=== PATIENT | female | born 1955 | race Caucasian/White ===

== ENCOUNTER 2020-10-31 11:18 | Outpatient (REF) | payer BC, SELFPAY ==
--- NOTE | ~2020-10-31 | CT_ITS ---
EXAMINATION: CT CHEST WITHOUT CONTRAST CLINICAL INFORMATION: Pulmonary nodules. COMPARISON: CT chest dated 09/03/2019. TECHNIQUE: Multidetector volumetric CT imaging of the chest was done. Axial MIP volume rendering provided. Sagittal and coronal reformatted images were obtained. This CT examination was performed using dose optimization techniques as appropriate, variously including the following: *Automated exposure control *Adjustment of mA and/or kV according to patient size (this includes techniques or standardized protocols for targeted exams where dose is matched to indication/reason for exam; i.e. extremities or head) *Use of iterative reconstruction technique DLP: 109 mGy-cm. FINDINGS: COUNSELING PROGRAM LEADER: Unremarkable. LUNGS: Biapical nodular pleural thickening is redemonstrated. Subpleural nodularity is again noted to extend posteriorly along the right lung, similar when compared to the prior examination. Stable lateral subpleural nodule measuring 0.3 cm (axial image 134/436). Stable small subpleural nodules along the left major fissure and within the subpleural left upper lobe. No new pulmonary nodule, mass, or airspace consolidation. The central airways are patent. MEDIASTINUM: No cardiomegaly. No pericardial effusion. No thoracic aortic dilatation. No significant superior mediastinal or hilar lymphadenopathy, however, evaluation somewhat limited without IV contrast. Unremarkable thyroid. PLEURA: No pleural effusion or pneumothorax. AXILLA: No lymphadenopathy. UPPER ABDOMEN: Left upper pole renal cyst with associated calcifications, unchanged. Nonobstructing left midpole renal stone, unchanged. Otherwise, the visualized upper abdominal structures are unremarkable. OSSEOUS STRUCTURES: Unremarkable. CT/CT chest wo con IMPRESSION: 1. Biapical nodular pleural thickening extending inferiorly along the posterior right lower lobe, unchanged. Small pulmonary nodules, unchanged. No continued routine follow-up imaging recommended. 2. No new pulmonary nodule, mass, or airspace consolidation. No pleural effusion or pneumothorax. 3. No new or increasing lymphadenopathy. 4. Stable left upper pole renal cyst with associated calcification.
== END 2020-10-31 11:19 | disposition home or self-care (01) ==
LOC: HO.CT 11:18
PROVIDERS: PCP Internal Medicine Geriatric Medicine; Visit Provider Hospitalist
DX: R91.8 Other nonspecific abnormal finding of lung field (principal); I83.12 Varicose veins of left lower extremity with inflammation
CPT/HCPCS: 71250

== ENCOUNTER 2020-11-02 10:17 | Outpatient (REF) | payer MEDICARE, SELFPAY ==
--- NOTE | ~2020-11-02 | US_ITS ---
EXAMINATION: RIGHT and LEFT LOWER EXTREMITY VENOUS ULTRASOUND (Reflux Exam) CLINICAL INDICATION: leg pain and varicose veins. COMPARISON: None. TECHNIQUE: Color flow triplex imaging and compression Doppler was performed to evaluate both the deep and the superficial systems bilaterally. To evaluate the superficial system, the examination was performed in the upright position. Color-flow Doppler ultrasound and compression ultrasound were utilized. In addition, maneuvers were utilized to demonstrate reflux. FINDINGS: 1. DEEP VENOUS ULTRASOUND OF THE RIGHT LOWER EXTREMITY: Respiratory variation, normal compression and augmented flow are noted in the right common femoral vein as well as the right popliteal vein and there is no evidence of deep venous thrombosis at these locations. There is no evidence of reflux in the deep system in either the common femoral vein or the popliteal vein. There is no evidence of a Marie's cyst. 2. SUPERFICIAL ULTRASOUND WITH DOPPLER OF RIGHT LOWER EXTREMITY: The right great saphenous vein at the saphenofemoral junction measures 4 mm, at the mid thigh 3 mm, hyilk-mnv-hrfx 2 mm, zohaa-icv-nkhq 1 mm, at mid calf 1 mm and at the ankle measures 2 mm. There is no reflux demonstrated in the right great saphenous vein. The right small saphenous vein measures 2-4 mm and shows no reflux. There are 2 small perforators in the mid calf that measure 1 and 2 mm and do not demonstrate reflux. 3. DEEP VENOUS ULTRASOUND OF THE LEFT LOWER EXTREMITY: Respiratory variation, normal compression and augmented flow are noted in the left common femoral vein as well as the left popliteal vein and there is no evidence of deep venous thrombosis at these locations. There is no evidence of reflux in the deep system in either the common femoral vein or the popliteal vein. . There is no evidence of a Marie's cyst. 4. SUPERFICIAL ULTRASOUND WITH DOPPLER OF LEFT LOWER EXTREMITY: Left great saphenous vein at the saphenofemoral junction measures 6 mm, at the mid thigh to mm, rqupb-enp-idwy 2 mm, omijf-iai-ttbp 1 mm, at mid calf 2 mm and at the ankle measures 2 mm. There is left greater saphenous vein reflux below the knee measuring 3.2 seconds. There is an accessory lateral greater saphenous vein that measures 2 to 3 mm and does not demonstrate reflux. The left small saphenous vein measures 3 mm and demonstrates maximum 3.5 second reflux. There are varicosities that communicate with the lesser saphenous vein that measure 4 mm and demonstrate maximum 3.5 second reflux. US/US venous duplex LE BI IMPRESSION: 1. No evidence of reflux or thrombus in the common femoral veins or popliteal veins bilaterally. 2. No right greater saphenous vein reflux. Left greater saphenous vein reflux below the knee. Left lesser saphenous vein reflux and varicosities that communicate with the left lesser saphenous vein that demonstrate reflux.
== END 2020-11-02 10:18 | disposition home or self-care (01) ==
LOC: HO.US 10:17
PROVIDERS: Visit Provider Surgery Vascular Surgery
DX: I83.893 Varicose veins of bilateral lower extremities with other complications (principal); I83.12 Varicose veins of left lower extremity with inflammation
CPT/HCPCS: 93970

== ENCOUNTER → 2020-11-16 15:10 | Outpatient (BNVA) | payer MEDICARE, SELFPAY | PROVIDERS: PCP Internal Medicine Geriatric Medicine; Visit Provider Surgery Vascular Surgery | DX: I83.12 Varicose veins of left lower extremity with inflammation (principal) | CPT/HCPCS: 99212 ==

== ENCOUNTER 2023-02-20 09:44 | Outpatient (AMB) | payer MEDICARE, SELFPAY ==
--- NOTE | 2023-02-20 10:09 | A.OFFVIS_ITS ---
Intake VS Expanded 02/20/23 10:10 Height 5 ft 1 in Weight 125 lb 7.088 oz BMI 23.7 Intake Visit Reasons: diverticulitys Allergies cephalexin Allergy (Unknown, Verified 11/16/20 15:12) Swelling IVP Dye Allergy (Severe, Uncoded 10/31/20 12:18) Anaphylaxis HPI Nutrition Presentation Details Pt presents for MNT for diverticulosis. Pt was referred by Dr. Kirk. Name Pt reports having had diverticulitis 3 month ago and has started s making diet modifications regarding seeds/skins/popcorn Reports having long hx of constipation B: 1/2 bagel white , sharp cheese and slice of turkey ham and coffee th started having almond milk and team snack: carolin iwth sugar and 1 banana L: fruit cups D: rice/chicken or pasta with chicken or fish beverages: 16 oz of d (water or tea) physical activity: daily life activities ETOH/smoking denies ZQU-Mkcvary-Cr.Jeor Equation Height 5 ft 1 in Weight 125 lb Resting Metabolic Rate 1034.32 Calculated Activity Level Mild Activity Calories Needed to Maintain Weight 1422.19 Diagnosis Nutrition problem #1 food nutri know defi As related to (etiology) #1 diagnosis As evidenced by (sign/symptom) #1 knowledge deficit of diet Monitoring/Goals Nutrition problem monitoring level of knowledge/skill and oral fluids ( gradually increasing fiber rich foods) Learning/Education Readiness to learn good Educational materials provided Yes (meal planning, fluids, fiber rich foods) Most Recent Diabetes Results: No Data to Display [facility] Medical History History of DVT (deep vein thrombosis) Osteoporosis Renal cyst Situational anxiety Venous (peripheral) insufficiency Assessment & Plan Assessment & Plan (1) Diverticulitis: Code(s): K57.92 - Diverticulitis of intestine, part unspecified, without perforation or abscess without bleeding Plan: wt: 57 kg Est kcal needs as per25 kcal/kg bw: 1400 (40% carb, 30% protein/fat) Est fluid needs as per 25-30 ml/d: 1400 Est prot per day as per 1 g/kg bw: 57 Recommend fiber intake : 8-10 g per day and gradually increase to 25-28 g per day for women and 35-38 g for men or as tolerated Recommend sodium intake per day : less than 2000 mg Educated patient on: ( R = reviewed V = verbalizes understanding N/R = needs review N/A = not applicable * Food sources of carbohydrate, adequate serving sizes and its role in various health conditions: R * Differences between complex carbohydrates a simple carbohydrates, role of fiber in diet: R * Differences between types of fats and role in diet (mono on saturated fat fatty acids, saturated fatty acids, trans fats): NR * Food sources of sodium in salt and healthy modifications for heart health in kidney health: NR * Vitamins and minerals: R * Healthy plate method concept: R * Physical activity: Benefits a precaution: R * Hydration: R Patient Instructions: Increase fluid intake aim at 6-8 oz of fluids with meals and snacks Gradually increase fiber to 6-12 g as tolerated for now see meal plan ideas Coding Level of Care Code Nutr Indiv Intake (60494) Diagnoses Diverticulitis K57.92 Time Spent (min) 30
[2023-02-20 10:10] VITALS: BMI 23.7
[2023-02-26 15:03] VITALS: BMI 23.6
== END 2023-02-20 10:52 | disposition home or self-care (01) ==
PROVIDERS: PCP Internal Medicine Geriatric Medicine; Visit Provider Dietitian, Registered
DX: K57.92 Diverticulitis of intestine, part unspecified, without perforation or abscess without bleeding (principal)

== ENCOUNTER → 2023-02-20 09:44 | Outpatient (BNVA) | payer MEDICARE, SELFPAY | PROVIDERS: PCP Internal Medicine Geriatric Medicine; Visit Provider Dietitian, Registered | DX: K57.92 Diverticulitis of intestine, part unspecified, without perforation or abscess without bleeding (principal); Z71.3 Dietary counseling and surveillance | CPT/HCPCS: 97802 ==

== ENCOUNTER 2023-06-16 14:15 | Outpatient (AMB) | payer MEDICARE, SELFPAY ==
[2023-06-16 14:17] VITALS: BMI 24.2
--- NOTE | 2023-06-16 14:17 | A.OFFVIS_ITS ---
Intake VS Expanded 06/16/23 14:17 Height 5 ft 1 in Weight 128 lb 4.944 oz BMI 24.2 Intake Visit Reasons: diverticulitis Allergies cephalexin Allergy (Unknown, Verified 11/16/20 15:12) Swelling IVP Dye Allergy (Severe, Uncoded 10/31/20 12:18) Anaphylaxis HPI Nutrition Presentation Details Pt presents for MNT for hx of diverticulosis Pt reports increasing in fiber intake, including 3-4 g of fiber at each meal and working on increasing fluids, concerned about cold weather and possible reduction in fluid intake. Most Recent Diabetes Results: No Data to Display [facility] Medical History History of DVT (deep vein thrombosis) Osteoporosis Renal cyst Situational anxiety Venous (peripheral) insufficiency Assessment & Plan Assessment & Plan (1) Diverticulitis: Code(s): K57.92 - Diverticulitis of intestine, part unspecified, without perforation or abscess without bleeding Plan: wt: 57 kg Est kcal needs as per25 kcal/kg bw: 1400 (40% carb, 30% protein/fat) Est fluid needs as per 25-30 ml/d: 1400 Est prot per day as per 1 g/kg bw: 57 Recommend fiber intake : 8-10 g per day and gradually increase to 25-28 g per day for women and 35-38 g for men or as tolerated Recommend sodium intake per day : less than 2000 mg Educated patient on: ( R = reviewed V = verbalizes understanding N/R = needs review N/A = not applicable * Food sources of carbohydrate, adequate serving sizes and its role in various health conditions: R * Differences between complex carbohydrates a simple carbohydrates, role of fiber in diet: R, V * Vitamins and minerals: R * Healthy plate method concept: R * Physical activity: Benefits a precaution: R * Hydration: R,V Patient Instructions: Increase fluids by having tea, water , diluted fruit juices water , soups , low fat milk . Aim at 6-7 cups/day, may need to increase as fiber consumption increases to prevent constipation Choose fruit juices with natural sorbitol (pear/prune/apple) and fruits (berries/grapes, pears, apples, vegetables like cabbages, broccoli) Coding Level of Care Code Nutr Indiv Subseq (14136) Diagnoses Diverticulitis K57.92 Time Spent (min) 30
== END 2023-06-16 14:44 | disposition home or self-care (01) ==
PROVIDERS: PCP Internal Medicine Geriatric Medicine; Visit Provider Dietitian, Registered
DX: K57.92 Diverticulitis of intestine, part unspecified, without perforation or abscess without bleeding (principal)

== ENCOUNTER → 2023-06-16 14:15 | Outpatient (BNVA) | payer MEDICARE, SELFPAY | PROVIDERS: PCP Internal Medicine Geriatric Medicine; Visit Provider Dietitian, Registered | DX: K57.92 Diverticulitis of intestine, part unspecified, without perforation or abscess without bleeding (principal) | CPT/HCPCS: 97803 ==

== ENCOUNTER 2023-09-15 14:04 | Outpatient (AMB) | payer MEDICARE, SELFPAY ==
[2023-09-15 14:23] VITALS: BMI 25.0
--- NOTE | 2023-09-15 14:23 | A.OFFVIS_ITS ---
Intake VS Expanded 09/15/23 14:23 Height 5 ft 1 in Weight 132 lb 7.965 oz BMI 25.0 Intake Visit Reasons: diverticulitis/CONFIRMED Allergies cephalexin Allergy (Unknown, Verified 11/16/20 15:12) Swelling IVP Dye Allergy (Severe, Uncoded 10/31/20 12:18) Anaphylaxis HPI Nutrition Presentation Details Patient presents for medical nutrition therapy for history of diverticulitis. Patient reports she has cracker gradually working on increasing fluids and also fiber rich foods. Patient reports feeling comfortable and having no dietary questions or concerns at this time. She reports feeling a little anxious to to retiring soon and needs to find and ways to keep active physical activity walking 15 minutes Most Recent Diabetes Results: No Data to Display COUNT INCLUDES [facility] Medical History History of DVT (deep vein thrombosis) Osteoporosis Renal cyst Situational anxiety Venous (peripheral) insufficiency Assessment & Plan Assessment & Plan (1) Diverticulitis: Code(s): K57.92 - Diverticulitis of intestine, part unspecified, without perforation or abscess without bleeding Plan: wt: 57 kg, 60 kg (09/2023) Est kcal needs as per25 kcal/kg bw: 1400 (40% carb, 30% protein/fat) Est fluid needs as per 25-30 ml/d: 1400 Est prot per day as per 1 g/kg bw: 57 Recommend fiber intake : 8-10 g per day and gradually increase to 25-28 g per day for women and 35-38 g for men or as tolerated Recommend sodium intake per day : less than 2000 mg Educated patient on: ( R = reviewed V = verbalizes understanding N/R = needs review N/A = not applicable * Food sources of carbohydrate, adequate serving sizes and its role in various health conditions: R * Differences between complex carbohydrates a simple carbohydrates, role of fiber in diet: R, V * Vitamins and minerals: R * Healthy plate method concept: R * Physical activity: Benefits a precaution: R * Hydration: R,V Patient Instructions: Include foods with probiotics and prebiotics Continue working on having variety of foods, choose cooked or canned vegetables low in salt Keep hydrated by having water with meals Joined the [facility] food for activities Call for any questions Coding Level of Care Code Nutr Indiv Subseq ([id number]) Diagnoses Diverticulitis K57.92 Time Spent (min) 30
== END 2023-09-15 14:54 | disposition home or self-care (01) ==
PROVIDERS: PCP Internal Medicine Geriatric Medicine; Visit Provider Dietitian, Registered
DX: K57.92 Diverticulitis of intestine, part unspecified, without perforation or abscess without bleeding (principal)

== ENCOUNTER → 2023-09-15 14:04 | Outpatient (BNVA) | payer MEDICARE, SELFPAY | PROVIDERS: PCP Internal Medicine Geriatric Medicine; Visit Provider Dietitian, Registered | DX: K57.92 Diverticulitis of intestine, part unspecified, without perforation or abscess without bleeding (principal) | CPT/HCPCS: 97803 ==

== ENCOUNTER 2023-10-08 13:32 | Outpatient (AMB) | payer MEDICARE, SELFPAY ==
--- NOTE | 2023-10-08 13:35 | A.OFFVIS_ITS ---
Intake Vital Signs 10/08/23 13:37 Height 5 ft 1 in Weight 128 lb 11.999 oz BMI 24.3 BP 144/73 H Blood Pressure Location Lt brachial Position Sitting Pulse 77 Pulse Source Pulse Oximeter Pulse Oximetry (%) 99 Oxygen Delivery Method Room Air Intake Visit Reasons: colonoscopy and diverticulitis Supervisor Type Disk Quality Control Required: No Information Interpreted: non-clinical & clinical Accompanied by: Self / Same As Patient Allergies cephalexin Allergy (Unknown, Verified 10/08/23 13:38) Swelling IVP Dye Allergy (Severe, Uncoded 10/08/23 13:38) Anaphylaxis HPI colonoscopy and diverticulitis HPI Details 68 year old? female with past medical hi story of osteoporosis, hyperlipidemia, hypertension is here today for pre colonoscopy screening.? Patient was sent to us by his PCP.? Last colonoscopy about 8 or 9 years ago. No polyps found. Patient was diagnosed with diverticulosis. Last year patient had an episode of diverticulitis seen in the ER at [facility] and sent home with antibiotics. Since then patient had no further episodes.? However patient does admit to be straining and trouble moving her bowels.? Denies any personal or family history of gastrointestinal disease, colon polyps, or cancer.? Denies history of difficulty with sedation or anesthesia in the past.? Negative for history of sleep apnea.? Denies any history of cardiac, renal, pulmonary, or hepatic disease.?? No history of infectious? diseases like hepatitis A, B, C, HIV or tuberculosis.? Patient is not on any anticoagulation therapy. [facility] Medical History (Updated 10/08/23 @ 14:23 by Kaylynn Ng [facility]) Diverticulosis History of DVT (deep vein thrombosis) Renal cyst Osteoporosis Situational anxiety Venous (peripheral) insufficiency Family History (Updated 10/08/23 @ 13:41 by Lisa Morfin MA) Mother Cancer of liver Cancer of stomach Social History (Updated 10/08/23 @ 13:45 by Lisa Morfin MA) Household Members: Spouse Alcohol intake: never Patient Tobacco Use Status: Never used Tobacco Review of Systems Const Denies weight gain and Denies weight loss ENT Reports no additional complaints, Denies dysphagia and Denies odynophagia Card Reports no additional complaints Resp Reports no additional complaints GI Denies abdominal pain, Denies belching, Denies melena, Denies bloating, Denies change in bowel habits, Reports constipation, Denies dysphagia, Denies dyspepsia, Denies heartburn, Denies diarrhea, Denies loose stools, Denies nausea, Denies odynophagia and Denies vomiting Reports no additional complaints Musc Reports no additional complaints Neuro Reports no additional complaints Psych Reports no additional complaints Endo Reports no additional complaints Physical Exam Vital Signs: BMI result Body Mass Index 24.3 Const General: healthy appearing, no acute distress and well developed Nutritional Appearance: well nourished Orientation/consciousness: patient oriented x3 Resp Effort & Inspection: normal respiratory effort, able to speak in complete sentences, no tracheal deviation and symmetric chest movement Auscultation: clear to auscultation bilaterally Cardio Rate: regular rate GI Inspection: Yes normal to inspection and No distended Palpation (GI): Soft to palpation, not firm, nontender and No hepatosplenomegaly present Auscultation: normal bowel sounds General: Yes no CVA tenderness Back/Spine/Pelvis Back: no CVA tenderness Skin General skin exam: elasticity normal, turgor normal and dry skin Neuro General: patient oriented x3 Psych Appearance: grossly normal Mental Status: mental status grossly normal Assessment & Plan Assessment & Plan (1) Diverticulitis: Code(s): K57.92 - Diverticulitis of intestine, part unspecified, without perforation or abscess without bleeding (2) Screen for colon cancer: Code(s): Z12.11 - Encounter for screening for malignant neoplasm of colon (3) Diverticulosis: Code(s): K57.90 - Diverticulosis of intestine, part unspecified, without perforation or abscess without bleeding (4) Constipation: Code(s): K59.00 - Constipation, unspecified Qualifiers: Constipation type: slow transit constipation Qualified Code(s): K59.01 - Slow transit constipation Plan Patient denies any cardiac or respiratory symptoms.? Denies any issues with anesthesia in the past.? Denies any history of sleep apnea.? No history infectious diseases in the past or present.? Not on any anticoagulation therapy.? No family or personal history of colon cancer or polyps.? Patient denies melena, hematochezia, unintentional weight loss or ribbon like stools.? Patient reports constipation, history of diverticulitis and diagnosed with diverticulosis 8 years ago on colonoscopy. Patient is not moving her bowels, states that she is constipated. Most likely due to diverticulosis. Last year when seen in the ER at [facility] CT scan showed moderate diverticulosis of left side of her colon. Large area in sigmoid colon with inflammation and patient was placed on antibiotics. Patient will start taking MiraLax daily and Colace. The importance of good bowel prep discussed with patient. Discussed at length the pre-procedure,? prep, diet & medications as well as what to expect prior, during and after the procedure.?? Stressed the importance of good bowel prep. ?Recommended the use of Vaseline or Calmoseptine OTC & baby wipes with bowel movements to promote comfort.? ?Patient verbalizes understanding and agrees to plan of care.? She was given the opportunity to ask questions and all questions answered.? We will see her after the procedure.? Medications: New bisacodyl (Dulcolax (bisacodyl)) 10 mg (2 x 5 mg) PO BEDTIME 180 tabs 4RF polyethylene glycol 3350 (Miralax) As directed by gastroenterology department at [facility] 238 grams PO ONCE 238 grams 0RF Z12.11 - Encounter for screening for malignant neoplasm of colon docusate sodium 100 mg PO DAILY 30 caps 5RF K59.00 - Constipation, unspecified polyethylene glycol 3350 (Miralax) 17 grams PO DAILY 510 grams 2RF Coding Level of Care Code New Pt Level 4 (05055) Diagnoses Diverticulitis K57.92 Screen for colon cancer Z12.11 Diverticulosis K57.90 Slow transit constipation K59.01 Constipation type: slow transit constipation Time Spent (min) 45 Comment 30 minutes spent with patient and additional 15 minutes spent reviewing her records
[2023-10-08 13:37] VITALS: BP 144/73; PULSE 77; O2SAT 99; BMI 24.3
== END 2023-10-08 14:18 | disposition home or self-care (01) ==
PROVIDERS: PCP Internal Medicine Geriatric Medicine; Visit Provider Nurse Practitioner Family
DX: K57.92 Diverticulitis of intestine, part unspecified, without perforation or abscess without bleeding (principal); Z12.11 Encounter for screening for malignant neoplasm of colon; K57.90 Diverticulosis of intestine, part unspecified, without perforation or abscess without bleeding; K59.01 Slow transit constipation
CPT/HCPCS: 99204

== ENCOUNTER → 2023-10-08 13:32 | Outpatient (BNVA) | payer MEDICARE, SELFPAY | PROVIDERS: PCP Internal Medicine Geriatric Medicine; Visit Provider Nurse Practitioner Family | DX: Z01.818 Encounter for other preprocedural examination (principal); K57.90 Diverticulosis of intestine, part unspecified, without perforation or abscess without bleeding; K59.01 Slow transit constipation | CPT/HCPCS: 99202 ==

== ENCOUNTER 2024-02-24 06:23 | Day surgery (SDC) | payer MEDICARE, SELFPAY ==
[2024-02-20 14:08] VITALS: BMI 24.2
--- NOTE | 2024-02-23 12:42 | HO.ANESPROP2 ---
Documented by User: Lenore Leigh NP 02/23/24 12:43 HPI - Anesthesia Eval Consult details Narrative: 68yo F for Colonoscopy PMFSH Active Problems Active Problems: All Active Problems Diverticulosis (Acute) Diverticulitis (Acute) Varicose veins of left lower extremity with inflammation (Acute) Past Medical History Medical History (Updated 02/24/24 @ 08:10 by Jenn Mcgee RN) Elevated cholesterol HTN (hypertension) Diverticulosis History of DVT (deep vein thrombosis) Renal cyst Osteoporosis Situational anxiety Venous (peripheral) insufficiency Family History Family History (Updated 10/08/23 @ 13:41 by Lisa Morfin MA) Mother Cancer of liver Cancer of stomach Surgical History Surgical History (Updated 02/24/24 @ 07:49 by Jenn Mcgee RN) Hx of tonsillectomy Social History Social History Household Members: Spouse Alcohol intake: never Patient Tobacco Use Status: Never used Tobacco Use of substances other than those prescribed or required for medical reasons: No Are you DNR?: No Advance Directives: No Advance Directives Information Provided: Yes Meds Allergies Allergy/AdvReac Type Severity Reaction Status Date / Time cephalexin Allergy Unknown Swelling Verified 10/08/23 13:38 IVP Dye Allergy Severe Anaphylaxis Uncoded 10/08/23 13:38 Home Medications ?Medication ?Instructions ?Recorded ?Confirmed ?Last Taken ?Type atorvastatin 10 mg tablet (Lipitor) 10 mg PO DAILY 10/08/23 Unknown History propranolol 20 mg tablet 20 mg PO BID 10/08/23 Unknown History Kiana 10 mg PO DAILY 02/24/24 02/24/24 Unknown History Calcium 600 + D(3) 600 mg 02/24/24 Unknown History biotin 5,000 mcg 02/24/24 Unknown History Exam Height,Weight and Vital Signs: Height 5 ft 1 in Weight 58.06 kg Assessment and Plan Assessment Anesthesia Assessment: Chart Reviewed Documented by User: Collins Robertson MD 02/24/24 10:31 [facility] Past Medical History Medical History (Updated 02/24/24 @ 08:10 by Jenn Mcgee, RN) Elevated cholesterol HTN (hypertension) Diverticulosis History of DVT (deep vein thrombosis) Renal cyst Osteoporosis Situational anxiety Venous (peripheral) insufficiency Family History Family History (Updated 10/08/23 @ 13:41 by Lisa Morfin MA) Mother Cancer of liver Cancer of stomach Family history of problems with anesthesia: No Surgical History Surgical History (Updated 02/24/24 @ 07:49 by Jenn Mcgee, RN) Hx of tonsillectomy History of Problems with Anesthesia: No Social History Social History Household Members: Spouse Alcohol intake: never Patient Tobacco Use Status: Never used Tobacco Use of substances other than those prescribed or required for medical reasons: No Are you DNR?: No Advance Directives: No Advance Directives Information Provided: Yes Meds Allergies Allergy/AdvReac Type Severity Reaction Status Date / Time cephalexin Allergy Unknown Swelling Verified 10/08/23 13:38 IVP Dye Allergy Severe Anaphylaxis Uncoded 10/08/23 13:38 Home Medications ?Medication ?Instructions ?Recorded ?Confirmed ?Last Taken ?Type atorvastatin 10 mg tablet (Lipitor) 10 mg PO DAILY 10/08/23 Unknown History propranolol 20 mg tablet 20 mg PO BID 10/08/23 Unknown History Kiana 10 mg PO DAILY 02/24/24 02/24/24 Unknown History Calcium 600 + D(3) 600 mg 02/24/24 Unknown History biotin 5,000 mcg 02/24/24 Unknown History Exam Airway Mallampati Class: II TM Dist: >3cm Neck ROM: Full Loose/Missing/Broken Teeth: No Heart: ok Lungs: ok Assessment and Plan Assessment Anesthesia Assessment: Anesthesia Plan Discussed Final Anesthetic Review Family History of Problems with Anesthesia: No History of Problems with Anesthesia: No NPO: Yes ASA Class: II Final Preanesthetic Review: No Changes in Pt Med Stat, Meds/Allgs Chart Reviewed, Consent Obtained/Reviewed and Anes Risks/Benef Reviewed Patient Risk: Low Procedure Risk: Low Anesthetic Plan Anesthetic Plan: MAC: and Agree w/ Assess. and Plan Disposition: Standard PACU
[2024-02-24 07:43] VITALS: BMI 23.6
[2024-02-24 07:52] VITALS: BMI 23.6
[2024-02-24 08:03] VITALS: BP 144/93; PULSE 54; RESP 16; TEMP -12.3; TEMP 9.8; O2SAT 97
[2024-02-24] MEDS: Lactated Ringers 1,000 ML 100 ML IVCONT (08:25)
--- NOTE | 2024-02-24 09:25 | MHC.SHP ---
Pre-Procedural Eval Section A - 24 Hr Update-Section A only Date of Service: 02/24/24 Section B - Complete if H&P > 30 days Chief Complaint: Hx of diverticulitis Details of Present Illness: Diverticulosis History of DVT (deep vein thrombosis) Renal cyst Osteoporosis Situational anxiety Venous (peripheral) insufficiency Family History (Updated 10/08/23 @ 13:41 by Lisa Morfin MA) Mother Cancer of liver Cancer of stomach Present Medications: see Short Stay Collaborative assessment Allergies: Allergies Allergy/AdvReac Type Severity Reaction Status Date / Time cephalexin Allergy Unknown Swelling Verified 10/08/23 13:38 IVP Dye Allergy Severe Anaphylaxis Uncoded 10/08/23 13:38 Review of Systems Review of Systems Comment: Ten point ROS negative Exam Exam Comment: Gen appear: No acute distress HEENT: no icterus Chest: No overt resp distress Abd: soft, nontender, nondistended Psych: Stable affect, answering questions appropriately Neuro: A/Ox3 noted to move all extremities spontaneously Ext: no peripheral edema Plan Diagnosis/Plan: Unchanged I have reviewed the history and physical and performed a pertinent physical examination on my patient. No changes have occurred unless specified. Time Spent With Patient Time: Total time managing care of this patient today ____ minutes.
--- NOTE | 2024-02-24 10:24 | P.OPN-COLO_ITS ---
Colonoscopy Operative Note Operative Note Date of Service: 02/24/24 Narrative: Procedure: Colonoscopy Indication: Screening Endoscopist: Diana Loomis MD Anesthesia Provider: Dr Collins Robertson Anesthesia type: MAC Instrument: Olympus [id number]-[id number] Consent: Indication, risks vs benefits, and alternatives were discussed with the patient who gave written informed consent to proceed. EKG, pulse, pulse oximetry and blood pressure were monitored throughout the procedure. Please see anesthesia flowsheet. Procedure: The patient was brought to the procedure room and placed in the left lateral decubitus position. IV medications were administered by the anesthesia provider in attendance. A digital rectal exam was performed which was normal. A distal attachment cap was affixed to the tip of the colonoscope which was then inserted through the anus and advanced through the colon to the cecum at 80 cm. Appendiceal orifice and ileocecal valve were identified. Mucosa was carefully examined under high definition white light as the instrument was slowly withdrawn in a retrograde panoramic fashion. Retroflexion was performed in rectum. The procedure was somewhat difficult due to significant looping around hepatic flexure. There were no immediate obvious complications. The quality of the prep was BBPS: 2+2+3 = adequate Withdrawal time 7 minutes. Limitations: No limitations. Findings: Mucosa: Normal to cecum and terminal ileum. Protruding lesions: * 1 sessile polyp of size 15 mm in transverse colon. Hot snare polypectomy was performed. The polyp was completely removed and retrieved. * Large internal hemorrhoids without stigmata of recent bleeding. Excavated lesions: * Severe diverticulosis of sigmoid colon. Impression: 1. Normal colon mucosa 2. Total of 1 polyp removed 3. Internal hemorrhoids 4. Diverticulosis Recommendations: - Follow path results. - Repeat colonoscopy in 3 years if polyp is an adenoma
[2024-02-24 10:56] VITALS: BP 94/61; PULSE 64; RESP 64; TEMP 36.4; O2SAT 98
[2024-02-24 11:11] VITALS: BP 142/93; PULSE 61; RESP 64; TEMP 36.4; O2SAT 98
== END 2024-02-24 11:43 | disposition home or self-care (01) ==
PROVIDERS: PCP Internal Medicine Geriatric Medicine; Visit Provider Internal Medicine Gastroenterology
PROC: 0DJD8ZZ Inspection of Lower Intestinal Tract, Via Natural or Artificial Opening Endoscopic (ICD-10-PCS; CPT 45378; principal; 2024-02-24 11:20)
DX: Z12.11 Encounter for screening for malignant neoplasm of colon (principal); K57.30 Diverticulosis of large intestine without perforation or abscess without bleeding; Z87.19 Personal history of other diseases of the digestive system; D12.3 Benign neoplasm of transverse colon; K64.8 Other hemorrhoids; K64.4 Residual hemorrhoidal skin tags; K59.01 Slow transit constipation; I10 Essential (primary) hypertension; E78.5 Hyperlipidemia, unspecified; M81.0 Age-related osteoporosis without current pathological fracture; I87.2 Venous insufficiency (chronic) (peripheral); Z86.718 Personal history of other venous thrombosis and embolism; F41.8 Other specified anxiety disorders; Z79.899 Other long term (current) drug therapy; Z91.041 Radiographic dye allergy status; Z88.1 Allergy status to other antibiotic agents
CPT/HCPCS: 45385; 88305; J2704

== ENCOUNTER → 2024-02-24 06:23 | Outpatient (BNV) | payer MEDICARE, SELFPAY | PROVIDERS: PCP Internal Medicine Geriatric Medicine; Visit Provider Internal Medicine | DX: Z12.11 Encounter for screening for malignant neoplasm of colon (principal); D12.3 Benign neoplasm of transverse colon; K57.30 Diverticulosis of large intestine without perforation or abscess without bleeding; K64.8 Other hemorrhoids | CPT/HCPCS: 45385 ==

== ENCOUNTER 2024-03-03 09:30 | Outpatient (AMB) | payer MEDICARE, SELFPAY ==
--- NOTE | 2024-03-03 09:38 | A.OFFVIS_ITS ---
Vital Signs 03/03/24 09:40 Height 5 ft 1 in Weight 129 lb 3.054 oz BMI 24.4 BP 146/88 H Blood Pressure Location Lt brachial Position Sitting Pulse 60 Pulse Source Pulse Oximeter Pulse Oximetry (%) 97 Oxygen Delivery Method Room Air Intake Visit Reasons: s/p colon Intake Note: Jovita presents in office today for a scheduled post op FUV. CC; Pt denies any complications post op. Pt also denies any new concerns or sx at this time. Pt is aware that they found a polyp during the s/p and would like to discuss this further. Labor And Delivery Nurse Required: No Accompanied by: Spouse Allergies cephalexin Allergy (Unknown, Verified 03/03/24 09:39) Swelling IVP Dye Allergy (Severe, Uncoded 10/08/23 13:38) Anaphylaxis HPI HPI s/p colon: Details: LAST VISIT: Diverticulitis Screen for colon cancer Diverticulosis Constipation Plan Patient denies any cardiac or respiratory symptoms.? Denies any issues with anesthesia in the past.? Denies any history of sleep apnea.? No history infect ious diseases in the past or present.? Not on any anticoagulation therapy.? No family or personal history of colon cancer or polyps.? Patient denies melena, hematochezia, unintentional weight loss or ribbon like stools.? Patient reports constipation, history of diverticulitis and diagnosed with diverticulosis 8 years ago on colonoscopy. Patient is not moving her bowels, states that she is constipated. Most likely due to diverticulosis. Last year when seen in the ER at [facility] CT scan showed moderate diverticulosis of left side of her colon. Large area in sigmoid colon with inflammation and patient was placed on antibiotics. Patient will start taking MiraLax daily and Colace. The importance of good bowel prep discussed with patient. Discussed at length the pre- procedure,? prep, diet & medications as well as what to expect prior, during and after the procedure.?? Stressed the importance of good bowel prep. ?Recommended the use of Vaseline or Calmoseptine OTC & baby wipes with bowel movements to promote comfort.? ?Patient verbalizes understanding and agrees to plan of care.? She was given the opportunity to ask questions and all questions answered.? We will see her after the procedure.? Medications New bisacodyl (Dulcolax (bisacodyl)) 10 mg (2 x 5 mg) PO BEDTIME 180 tabs 4RF polyethylene glycol 3350 (Miralax) As directed by gastroenterology department at [facility] 238 grams PO ONCE 238 grams 0RF Z12.11 docusate sodium 100 mg PO DAILY 30 caps 5RF K59.00 polyethylene glycol 3350 (Miralax) 17 grams PO DAILY 510 grams 2RF COLONOSCOPY Findings: Mucosa: Normal to cecum and terminal ileum. Protruding lesions: * 1 sessile polyp of size 15 mm in transverse colon. Hot snare polypectomy was performed. The polyp was completely removed and retrieved. * Large internal hemorrhoids without stigmata of recent bleeding. Excavated lesions: * Severe diverticulosis of sigmoid colon. Impression: 1. Normal colon mucosa 2. Total of 1 polyp removed 3. Internal hemorrhoids 4. Diverticulosis Recommendations: - Follow path results. - Repeat colonoscopy in 3 years if polyp is an adenoma PATHOLOGY: Diagnosis Colon, transverse, polyp: Sessile serrated lesion/polyp with dysplasia, inflamed. Comment: Although no dysplasia is identified in thermal artifact at the presumed base, the specimen is in 2 fragments and may not be completely excised. Follow-up is warranted TODAY'S VISIT Patient is here today for follow-up and to discuss colonoscopy results. Patient denies any ill effects from the prep, anesthesia or procedure itself. Patient had 1 polyp sessile serrated lesion with dysplasia. Patient denies any melena, hematochezia, denies dyspepsia, dysphagia or odynophagia. Patient reports that she eats healthy. Patient admits that she eats lots of vegetables. Patient reports occasional constipation. Patient reports occasional pain in the right lower quadrant. Patient describes pain as cramping like pain that lasts couple hours. [facility] Medical History (Updated 03/03/24 @ 10:41 by Kaylynn Ng, [facility]-) Sessile serrated polyp of colon Elevated cholesterol HTN (hypertension) Diverticulosis History of DVT (deep vein thrombosis) Renal cyst Osteoporosis Situational anxiety Venous (peripheral) insufficiency Surgical History Hx of tonsillectomy Family History Mother Cancer of liver Cancer of stomach Social History Household Members: Spouse Alcohol intake: never Patient Tobacco Use Status: Never used Tobacco Review of Systems Const Denies weight gain and Denies weight loss ENT Reports no additional complaints, Denies dysphagia and Denies odynophagia Card Reports no additional complaints Resp Reports no additional complaints GI Reports abdominal pain (Cramping RLQ), Denies belching, Denies melena, Denies bloating, Denies change in bowel habits, Reports constipation (Occasional), Denies dysphagia, Denies dyspepsia, Denies heartburn, Denies diarrhea, Denies loose stools, Denies nausea, Denies odynophagia and Denies vomiting Reports no additional complaints Musc Reports no additional complaints Neuro Reports no additional complaints Psych Reports no additional complaints Endo Reports no additional complaints Physical Exam Vital Signs: Last Vital Signs Pulse 60 03/03/24 09:40 BP 146/88 H 03/03/24 09:40 Pulse Ox 97 03/03/24 09:40 Oxygen Delivery Method Room Air 03/03/24 09:40 BMI result Body Mass Index 24.4 Const General: healthy appearing, no acute distress and well developed Nutritional Appearance: well nourished Orientation/consciousness: patient oriented x3 Resp Effort & Inspection: normal respiratory effort, able to speak in complete sentences, no tracheal deviation and symmetric chest movement Auscultation: clear to auscultation bilaterally Cardio Rate: regular rate GI Inspection: Yes normal to inspection and No distended Palpation (GI): Soft to palpation, not firm, nontender and No hepatosplenomegaly present Auscultation: normal bowel sounds General: Yes no CVA tenderness Back/Spine/Pelvis Back: no CVA tenderness Skin General skin exam: elasticity normal, turgor normal and dry skin Neuro General: patient oriented x3 Psych Appearance: grossly normal Mental Status: mental status grossly normal Assessment & Plan Assessment & Plan (1) Diverticulosis: Code(s): K57.90 - Diverticulosis of intestine, part unspecified, without perforation or abscess without bleeding Category: Medical (2) Sessile serrated polyp of colon: Code(s): D12.6 - Benign neoplasm of colon, unspecified Category: Medical (3) Status post colonoscopy: Code(s): Z98.890 - Other specified postprocedural states Plan Two fragments of sessile serrated polyp unsure if the polyps were removed completely. Surveillance recommended 1 year instead of 3 years. Patient will return to the office in 6 months. Discussed with her the importance of high- fiber diet, seeming all of her vegetables. Discuss also with patient low FODMAP diet as she does report that occasional abdominal bloating. May take probiotics daily. Patient is agreeable to this plan and verbalizes understanding of instructions she was given the opportunity to ask questions and all questions answered. Thank you for allowing me to participate in her care Coding Level of Care Code Est Pt Level 3 (15636) Diagnoses Diverticulosis K57.90 Sessile serrated polyp of colon D12.6 Status post colonoscopy Z98.890 Time Spent (min) 30 Comment 20 minutes spent with patient and additional 10 minutes spent reviewing her records
[2024-03-03 09:40] VITALS: BP 146/88; PULSE 60; O2SAT 97; BMI 24.4
== END 2024-03-03 10:29 | disposition home or self-care (01) ==
PROVIDERS: PCP Internal Medicine Geriatric Medicine; Visit Provider Nurse Practitioner Family
DX: K57.90 Diverticulosis of intestine, part unspecified, without perforation or abscess without bleeding (principal); D12.6 Benign neoplasm of colon, unspecified; Z98.890 Other specified postprocedural states
CPT/HCPCS: 99213

== ENCOUNTER → 2024-03-03 09:30 | Outpatient (BNVA) | payer MEDICARE, SELFPAY | PROVIDERS: PCP Internal Medicine Geriatric Medicine; Visit Provider Nurse Practitioner Family | DX: K57.90 Diverticulosis of intestine, part unspecified, without perforation or abscess without bleeding (principal); D12.6 Benign neoplasm of colon, unspecified; Z98.890 Other specified postprocedural states | CPT/HCPCS: 99212 ==

== ENCOUNTER 2024-11-17 09:55 | Outpatient (AMB) | payer MEDICARE, SELFPAY ==
--- NOTE | 2024-11-17 09:58 | A.OFFVIS_ITS ---
Vital Signs 11/17/24 09:59 Height 5 ft 1 in Weight 126 lb BMI 23.8 BP 142/70 H Blood Pressure Location Rt brachial Position Sitting Pulse 54 Pulse Source Pulse Oximeter Pulse Oximetry (%) 98 Oxygen Delivery Method Room Air Intake Visit Reasons: 6 mo Intake Note: ESTABLISHED PATIENT for Abdominal pain, constipation, diverticulosis mgmt. Chief Complaint; C.O. intermittent constipation w/ BRB per rectum in small to moderate amounts. Pt also reports having RLQ pain and nausea. Pt denies any additional sx or concerns at this time. Pt was given stool softener by PCP but has not started the medication yet. Live Truck Operator Required: No Allergies Iodinated Contrast Media Allergy (Severe, Verified 11/17/24 10:04) Anaphylaxis cephalexin Allergy (Unknown, Verified 11/17/24 10:04) Swelling HPI HPI 6 mo: Details: LAST VISIT: Diverticulosis Sessile serrated polyp of colon Status post colonoscopy Plan Two fragments of sessile serrated polyp unsure if the polyps were removed completely. Surveillance recommended 1 year instead of 3 years. Patient will return to the office in 6 months. Discussed with her the importance of high- fiber diet, seeming all of her vegetables. Discuss also with patient low FODMAP diet as she does report that occasional abdominal bloating. May take probiotics daily. Patient is agreeable to this plan and verbalizes understanding of ins tructions she was given the opportunity to ask questions and all questions answered. ? TODAY'S VISIT: Patient is here today for follow-up. Patient reports that overall she has been feeling well. Reports occasional constipation, PCP send her script for Colace, however she states that she has not taking it yet. Patient is taking supplements and is able to move her bowels. Occasionally when she is constipated there is a blood on the toilet paper when wiping. Patient denies actual blood in her stools. Denies melena, hematochezia, unintentional weight loss or ribbon like stools. Patient denies any dyspepsia, dysphagia or odynophagia. Patient reports that she is trying to eat healthy. She is eating vegetables and fruits. Patient admits that she is not drinking enough water. Patient reports that she only drinks about 1 bottle of water a day about 8 oz total. [facility] Medical History Sessile serrated polyp of colon Elevated cholesterol HTN (hypertension) Diverticulosis History of DVT (deep vein thrombosis) Renal cyst Osteoporosis Situational anxiety Venous (peripheral) insufficiency Surgical History Hx of tonsillectomy Family History Mother Cancer of liver Cancer of stomach Social History Household Members: Spouse Alcohol intake: never Patient Tobacco Use Status: Never used Tobacco Review of Systems Const Denies weight gain and Denies weight loss ENT Reports no additional complaints, Denies dysphagia and Denies odynophagia Card Reports no additional complaints Resp Reports no additional complaints GI Reports abdominal pain (Cramping RLQ), Denies belching, Denies melena, Denies bloating, Denies change in bowel habits, Reports constipation (Occasional), Denies dysphagia, Denies dyspepsia, Denies heartburn, Denies diarrhea, Denies loose stools, Denies nausea, Denies odynophagia and Denies vomiting Reports no additional complaints Musc Reports no additional complaints Neuro Reports no additional complaints Psych Reports no additional complaints Endo Reports no additional complaints Physical Exam Vital Signs: Last Vital Signs Pulse 54 11/17/24 09:59 BP 142/70 H 11/17/24 09:59 Pulse Ox 98 11/17/24 09:59 Oxygen Delivery Method Room Air 11/17/24 09:59 BMI result Body Mass Index 23.8 Const General: healthy appearing, no acute distress and well developed Nutritional Appearance: well nourished Orientation/consciousness: patient oriented x3 Resp Effort & Inspection: normal respiratory effort, able to speak in complete sentences, no tracheal deviation and symmetric chest movement Auscultation: clear to auscultation bilaterally Cardio Rate: regular rate GI Inspection: Yes normal to inspection and No distended Palpation (GI): Soft to palpation, not firm, nontender and No hepatosplenomegaly present Auscultation: normal bowel sounds General: Yes no CVA tenderness Back/Spine/Pelvis Back: no CVA tenderness Skin General skin exam: elasticity normal, turgor normal and dry skin Neuro General: patient oriented x3 Psych Appearance: grossly normal Mental Status: mental status grossly normal Assessment & Plan Assessment & Plan (1) Diverticulosis: Code(s): K57.90 - Diverticulosis of intestine, part unspecified, without perforation or abscess without bleeding Category: Medical (2) Sessile serrated polyp of colon: Code(s): D12.6 - Benign neoplasm of colon, unspecified Category: Medical (3) Constipation: Code(s): K59.00 - Constipation, unspecified Qualifiers: Constipation type: slow transit constipation Qualified Code(s): K59.01 - Slow transit constipation Plan Patient will continue eating high-fiber diet. Increase fluid intake and activity to promote better bowel motility. Patient was encouraged to take Colace daily to help her move her bowels better. Follow-up in 6 months, sooner on as needed basis. She is agreeable to this plan and verbalizes understanding of instructions. She was given the opportunity to ask questions and all questions answered. Thank you for allowing me to participate in her care Coding Level of Care Code Est Pt Level 3 (85427) Diagnoses Diverticulosis K57.90 Sessile serrated polyp of colon D12.6 Slow transit constipation K59.01 Constipation type: slow transit constipation Time Spent (min) 25 Comment 15 minutes spent with patient and additional 10 minutes spent reviewing her records
[2024-11-17 09:59] VITALS: BP 142/70; PULSE 54; O2SAT 98; BMI 23.8
--- OUTSIDE RECORDS SUMMARY | 2024-11-17 10:56 | XMS_ITS | Encounter Summary ---
Author Organization [employer] Address [address] [place] [address] [place] [address] Care Team Providers Care Business Sales Consultant Name Role Phone Name, Tommie NOYOLA Primary Care Provider [phone] Encounter Details Date Type Department Care Team (Late Contact Info) Description 12/13/2022 Abstract [facility] [address] [place] [address] [phone] Tommie Osullivan MD [address] [place] [address] [phone] Social History Tobacco Use Types Packs/Day Years Used Date Smoking Tobacco: Never Passive Smoke Exposure: Never Smokeless Tobacco: Never Comments Unknown Sex and Gender Information Value Date Recorded Sex Assigned at Female 05/13/2022 10:29 AM EDT Legal Sex Female 10:29 AM EDT Gender Identity Female 05/13/2022 10:29 AM EDT Sexual Orientation Straight 05/13/2022 10 :29 AM EDT COVID-19 Exposure Response Date Recorded In the last 10 days, have yo u been in contact with someone who was confirmed or suspected to have Coronavirus/COVID-19? No / Unsure 12/13/2022 10:11 AM EDT documented as of this encounter Plan of Treatment Upcoming Encounters Date Type Department Care Team (Late st Contact Info) Description 02/02/2025 11:30 AM EDT Office Visit [facility] [address] [place] [address] [phone] NameTommie MD [address] [place] [address] [phone] documented as of this encounter Visit Diagnoses Not on filedocumented in this encounter Care Teams Business Sales Consultant Relationship Specialty Start Date End Date Name, MD Tommie [address] [place] [address] PCP - General Family Medicine 10/27/15 documented as of this encounter
--- OUTSIDE RECORDS SUMMARY | 2024-11-17 10:56 | XMS_ITS | Clinical Summary ---
Author Organization [employer] Address [address] [place] [address] 7t [place] [address] Care Team Providers Care Motor Man Name Role Phone Name, Tommie NOYOLA Primary Care Provider [phone] Allergies Active Allergy Reactions Criticality Noted Date Comments Fexofenadine Hcl Swelling 02/24/2015 Cephalexin Rash Low 02/24/2015 Other reaction(s): OTHER Ibandronate 02/24/2015 Rash/chest pain Iodinated Contrast Media Rash Low 04/03/2016 Medications LORazepam (Ativan) 0.5 MG tabletIndicatio ns:Anxiety Take 1 tablet (0.5 mg) by mouth if needed each day for anxiety for up to 14 days. 10 tablet 4 Active propranolol (Inderal) 20 MG tabletIndicatio ns:Anxiety TAKE 1 TO 2 TABLETS BY MOUTH DAILY NEEDED FOR 30 MINUTES PRIOR TO PERFORMANCE STRENGTH 180 tablet 5 Active docusate sodium (Colace) 100 MG capsule Take 1 capsule (100 mg) by mouth 2 times daily. 60 capsule 3 5 10/28/19 25 Active Problems Problem Noted Date Diagnosed Date Diverticulitis 09/27/2024 Diverticulosis 09/27/2024 Varicose veins of left lower extremity with infl ammation 09/27/2024 Statin intolerance 09/27/2024 Overview (09/27/2024): Muscle pain on statin. High cholesterol 08/19/2023 Liver cyst 04/08/2023 Vascular insufficiency 04/08/2023 Essential tremor 04/08/2023 Restless legs 12/19/2022 Seasonal allergic reaction 12/19/2022 Uncomplicated varicose veins 12/19/2022 Renal cyst 03/17/2015 Overview (12/19/2022): left kidney, usn 2, cystic lesion with coarse calcifications Abnormal ultrasound of kidney 03/17/2015 Osteoporosis 02/24/2015 History of renal calculi 02/24/2015 Local reaction to bee sting 02/24/2015 History of DVT (deep vein thrombosis) 02/24/2015 Overview (12/19/2022): During . Resolved Problems Problem Noted Date Diagnosed Date Resolved Date Acute situational disturbance 09/16/2017 09/27/2024 Encounters Date Type Department Care Team Description 11/17/2024 Telephone [facility] MEDICINE [address] [place] [address] Tommie Osullivan MD Results 10/17/2024 Refill [facility] [address] [place] [address] Tommie Osullivan MD Anxiety 10/14/[address] [address] Shad Nguyen MA january recalls 09/27/2024 11:00 AM EDT Office Visit [address] [address] Tommie Osullivan MD Elevated blood pressure reading in office without diagnosis of hypertension (Primary Dx); Chronic constipation; History of renal calculi; Screening for diabetes mellitus; High cholesterol; Statin intolerance 09/27/2024 Travel 08/31/2024 Refill [facility] [address] [place] [address] Angela Casillas NP Hyperlipidemia, unspecified hyperlipidemia type from Last 3 Months Immunizations Name Administration Dates Next Due Influenza High-dose Quadrivalent Preservative Fr ee 05/20/2022 Influenza Quadrivalent Adjuvanted 05/13/2021, Influenza injectable quadriv alent IIV4 with preservative 05/06/2018,04/03/2016 Influenza injectable quadrivalent preservative f ree 04/08/2023 Influenza, High Dose Seasonal, Preservative Free 05/19/2019 Influenza, seasonal, injectable, preservative fr ee 04/30/2024 Moderna Covid-19 Vaccine 12+ 10/14/2021 Pneumococcal Conjugate PCV 20 10/05/2021 Tdap 05/06/2018 Zoster, Recombinant 07/08/2020,05/07/2020 Social History Tobacco Use Types Packs/Day Years Used Date Smoking Tobacco: Never Passive Smoke Exposure: Never Smokeless Tobacco: Never Tobacco Cessation:Counseling Given: Not Answered Alcohol Use Standard Drinks/Week Comments Never 0 (1 standard drink = 0.6 oz pur e alcohol) Depression Answer Date Recorded Patient Health Questionnaire-9 Score 0 04/08/2023 Housing Stability Answer Date Recorded What is your housing situation today? I have merybilly melchor 05/05/[address] you li ve. Do you have problems with any of the following? None of the above 05/05/2024 Food Insecurity Answer Date Recorded Within the past 12 months, y ou worried that your food would run out before you got money to buy more: Never True 05/05/2024 Within the past 12 months,th e food you bought just didn't last and you didn't have enough money to get more: Never True Transportation Answer Date Recorded In the past 12 months, has l ack of transportation kept you from medical appts, meetings, work or from getting things needed for daily living? No 05/05/2024 Utilities Answer Date Recorded In the past 12 months, has t he electric, gas, oil or water company threatened to shut off services in your home? No 05/05/2024 Depression Answer Date Recorded Patient Health Questionnaire-2 Score 0 04/08/2023 Internet Access Answer Date Recorded Internet Access Q1 Yes 05/05/2024 Internet Access Q2 Not on file 05/05/2024 Comments Unknown Sex and Gender Information Value Date Recorded Sex Assigned at Female 05/13/2022 10:29 AM EDT Legal Sex Female 10:29 AM EDT Gender Identity Female 05/13/2022 10:29 AM EDT Sexual Orientation Straight 05/13/2022 10 :29 AM EDT Last Filed Vital Signs Vital Sign Reading Time Taken Comments Blood Pressure 155/88 09/27/2024 10:48 AM EDT Pulse 54 09/27/2024 10:48 AM EDT Temperature 36.8 ??C (98.2 ??F) 09/27/2024 1 0:48 AM EDT Respiratory Rate 18 09/27/2024 10:4 8 AM EDT Oxygen Saturation 98% 09/27/2024 10: 48 AM EDT Inhaled Oxygen Concentration - - Weight 58.4 kg (128 lb 12.8 oz) 025 10:48 AM EDT Height 154.9 cm (5' 1 ) 09/27/2024 10:4 8 AM EDT Body Mass Index 24.34 09/27/2024 10:48 AM EDT Plan of Treatment Upcoming Encounters Date Type Department Care Team (Late st Contact Info) Description 02/02/2025 11:30 AM EDT Office Visit [facility] MEDICINE [address] [place], [place] [phone] Name, MD Tommie [address] [place] [address] Health Maintenance Due Date Last Done Comments CT Colonography 1953 FIT DNA/Cologuard 1955 FIT 1953 FOBT 1955 Sigmoidoscopy 1953 Hepatitis C Screening 1971 Hepatitis A Vaccines (1 of 2 - Risk 2-dose series) 1972 Hepatitis B Vaccines (1 of 3 - Risk 3-dose series) 2013 RSV Patients and Patients Aged 60 years or older (1 - Risk 60-74 years 1-dose series) 2013 Mammogram 04/13/2017 04/13/2015 Depression Screening 04/08/2024 04/08/2023, 04/08/20 23 SDOH Screening 05/05/2025 05/05/2024 Alcohol/Substance Use Screening 05/12/2025 05/12/2024 Tobacco Screening 09/27/2025 09/27/2024 Colonoscopy 02/24/2027 02/27/2024 Colorectal Cancer Screening 02/24/2027 DTaP/Tdap/Td Vaccines (2 - Td or Tdap) 05/06/2028 05/06/2018 Zoster Vaccines Completed 07/08/2020, 05/07/2020 Pneumococcal Vaccine: 50+ Years Completed 10/05/2021 COVID-19 Vaccine Completed 04/20/2024, 12/2022, 05/14/2022, Additional history exists Influenza Vaccine Completed 04/30/2024, , 05/20/2022, Additional history exists HIB Vaccines Aged Out No longer eligi ble based on patient's age to complete this topic HPV Vaccines Aged Out No longer eligi ble based on patient's age to complete this topic IPV Vaccines Aged Out No longer eligi ble based on patient's age to complete this topic Meningococcal Vaccine Aged Out No blanco laura eligible based on patient's age to complete this topic RSV under 20 months Aged Out No longe r eligible based on patient's age to complete this topic Rotavirus Vaccines Aged Out No longer eligible based on patient's age to complete this topic Procedures Procedure Name Priority Date/Time Associated Diagnosis Comments COLONOSCOPY Routine 02/27/2024 11:04 AM EDT from Last 3 Months or Most Recently Relevant to Health Maintenance Results * (ABNORMAL) Colonoscopy (02/27/2024 11:04 AM EDT) Colonoscopy Abnormal(A ) Normal Tommie Osullivan MD HEALTH MAINTENANCE Final Result from Last 3 Months or Most Recently Relevant to Health Maintenance Insurance [facility] [place] [id number] Care Teams Motor Man Relationship Specialty Start Date End Date Name, MD Tommie [address] [place] [phone] PCP - General Family Medicine 10/27/15
--- OUTSIDE RECORDS SUMMARY | 2024-11-17 10:56 | XMS_ITS | Encounter Summary ---
Author Organization [employer] Address [address] [place] [address] [place] [address] Care Team Providers Care Hospital Orderly Name Role Phone Name, Tommie NOYOLA Primary Care Provider [phone] Encounter Details Date Type Department Care Team (Late Contact Info) Description 06/24/2022 [facility] Health Information Management [address] [place] [address] NameTommie MD [address] [place] [address] Social History Tobacco Use Types Packs/Day Years Used Date Smoking Tobacco: Never Assessed Comments Unknown Sex and Gender Information Value Date Recorded Sex Assigned at Female 05/13/2022 10:29 AM EDT Legal Sex Female 10:29 AM EDT Gender Identity Female 05/13/2022 10:29 AM EDT Sexual Orientation Straight 05/13/2022 10 :29 AM EDT documented as of this encounter Plan of Treatment Upcoming Encounters Date Type Department Care Team (Late Contact Info) Description 02/02/2025 11:30 AM EDT Office Visit [facility] MEDICINE [address] [place] [address] NameTommie MD [address] [place] [address] documented as of this encounter Visit Diagnoses Not on filedocumented in this encounter Care Teams Hospital Orderly Relationship Specialty Start Date End Date Tommie Osullivan MD [address] [place] [phone] PCP - General Family Medicine 10/27/15 documented as of this encounter
--- OUTSIDE RECORDS SUMMARY | 2024-11-17 10:56 | XMS_ITS | Encounter Summary ---
Author Organization [employer] Address [address] [place] [address] 7 [place] [address] Care Team Providers Care It Service Delivery Manager Name Role Phone Name, Tommie NOYOLA Primary Care Provider [phone] Encounter Details Date Type Department Care Team (Late st Contact Info) Description 08/19/[address] [facility] [address] [place] [address] Shantel Al LPN Social History Tobacco Use Types Packs/Day Years [...] Description 02/02/2025 11:30 AM EDT Office Visit [facility] MEDICINE [address] [place] [address] NameTommie MD [address] [place] [address] documented as of this encounter Visit Diagnoses Not on filedocumented in this encounter Care Teams It Service Delivery Manager Relationship Specialty Start Date End Date Tommie Osullivan MD [address] [place] [address] PCP - General Family Medicine 10/27/15 documented as of this encounter
--- OUTSIDE RECORDS SUMMARY | 2024-11-17 10:56 | XMS_ITS | Encounter Summary ---
Author Organization [employer] Address [address] [place] [address] [place] [address] Care Team Providers Care Labor Relations Director Name Role Phone Name, Tommie NOYOLA Primary Care Provider [phone] Reason for Visit * Reason Onset Date Comments Results 11/17/2024 Encounter Details Date Type Department Care Team ([facility] st Contact Info) Description 11/17/2024 Telephone [facility] MEDICINE [address] [place], [place] [phone] Name, MD Tommie [address] [place] [address] Results Social History Tobacco Use Types Packs/Day Years Used Date Smoking Tobacco: Never Passive Smoke Exposure: Never Smokeless Tobacco: Never Alcohol Use Standard Drinks/Week Comments Never 0 (1 standard drink = 0.6 oz pur e alcohol) Depression Answer Date Recorded Patient Health Questionnaire-9 Score 0 04/08/2023 Housing Stability Answer Date Recorded What is your housing situation today? I have mery melchor 05/05/[address] you [...] AM EDT documented as of this encounter Miscellaneous Notes * Telephone Encounter - Kimberly Rogers - 11/17/2024 9:37 AM EDT TC from pt requesting call back regarding Results. Type of results: Lab Date when done: 2 months ago Facility: [facility] Contact pt at [phone] (thai) documented in this encounter Plan of Treatment Upcoming Encounters Date Type Department Care Team (Late st Contact Info) Description 02/02/2025 11:30 AM EDT Office Visit [facility] MEDICINE [address] [place] [phone] Name, MD Tommie [address] [place] [address] documented as of this encounter Visit Diagnoses Not on filedocumented in this encounter Additional Health Concerns Assessment Noted Time PHQ-9 Depression Total Score: 0 04/08/20 23 1:51 PM EDT documented as of this encounter Care Teams Labor Relations Director Relationship Specialty Start Date End Date Name, MD Tommie [address] [place] [address] PCP - General Family Medicine 10/27/15 documented as of this encounter
--- OUTSIDE RECORDS SUMMARY | 2024-11-17 10:56 | XMS_ITS | Encounter Summary ---
Author Organization [employer] Address [address] [place] [address] [place] [address] Care Team Providers Care Annual Campaign Manager Name Role Phone Name, Tommie NOYOLA Primary Care Provider [phone] Reason for Visit * Reason Onset Date Comments Referral 12/19/2022 Encounter Details Date Type Department Care Team ([facility] st Contact Info) Description 12/19/2022 Telephone [facility] MEDICINE [address] [place], [place] [phone] Name, MD Tommie [address] [place] [address] Referral Social History Tobacco Use Types Packs/Day Years [...] encounter Miscellaneous Notes * Telephone Encounter - Eufemia Brown - 12/19/2022 11:49 AM EDT Tc from pt requesting a referral to a sports therapist at the [facility] . Please call to clarify . documented in this encounter Plan of Treatment Upcoming Encounters Date Type Department Care Team (Late st Contact Info) Description 02/02/2025 11:30 AM EDT Office Visit [facility] MEDICINE [address] [place] [address] Name, MD Tommie [address] [place] [phone] documented as of this encounter Visit Diagnoses Not on filedocumented in this encounter Care Teams Annual Campaign Manager Relationship Specialty Start Date End Date Name, MD Tommie [address] [place] [phone] PCP - General Family Medicine 10/27/15 documented as of this encounter
--- OUTSIDE RECORDS SUMMARY | 2024-11-17 10:56 | XMS_ITS | Encounter Summary ---
Author Organization [employer] Address [address] [place] [address] [place] [address] Care Team Providers Care Marketing Associate Name Role Phone Name, Tommie NOYOLA Primary Care Provider [phone] Reason for Visit * Reason Onset Date Comments Referral 12/24/2022 Encounter Details Date Type Department Care Team ([facility] st Contact Info) Description 12/24/2022 Telephone [facility] MEDICINE [address] [place] [phone] Name, MD Tommie [address] [place] [address] Referral Social History Tobacco Use Types Packs/Day [...] encounter Miscellaneous Notes * Telephone Encounter - Cari Ma - 12/24/2022 12:56 PM EDT Tc from pt requesting Status on Pending referral for a global coordinator. Please contact pt at [phone] documented in this encounter Plan of Treatment Upcoming Encounters Date Type Department Care Team (Late st Contact Info) Description 02/02/2025 11:30 AM EDT Office Visit [facility] MEDICINE [address] [place] [address] Name, MD Tommie [address] [place] [address] documented as of this encounter Visit Diagnoses Not on filedocumented in this encounter Care Teams Marketing Associate Relationship Specialty Start Date End Date Name, MD Tommie [address] [place] [address] PCP - General Family Medicine 10/27/15 documented as of this encounter
== END 2024-11-17 10:32 | disposition home or self-care (01) ==
LOC: HO.HGI 09:55
PROVIDERS: PCP Internal Medicine Geriatric Medicine; Visit Provider Nurse Practitioner Family
DX: K57.90 Diverticulosis of intestine, part unspecified, without perforation or abscess without bleeding (principal); D12.6 Benign neoplasm of colon, unspecified; K59.01 Slow transit constipation
CPT/HCPCS: 99213

== ENCOUNTER → 2024-11-17 09:55 | Outpatient (BNVA) | payer MEDICARE, SELFPAY | PROVIDERS: PCP Internal Medicine Geriatric Medicine; Visit Provider Nurse Practitioner Family | DX: K57.90 Diverticulosis of intestine, part unspecified, without perforation or abscess without bleeding (principal); K59.01 Slow transit constipation; D12.6 Benign neoplasm of colon, unspecified | CPT/HCPCS: 99212 ==

== ENCOUNTER 2025-01-11 15:45 | Outpatient (REF) | payer MEDICARE, SELFPAY ==
--- OUTSIDE RECORDS SUMMARY | 2025-01-12 12:22 | XMS_ITS | Encounter Summary ---
Author Organization [employer] Address [address] [place] [address] [place] [address] Care Team Providers Care Trackman Name Role Phone Name, Tommie NOYOLA Primary Care Provider [phone] Reason for Visit * Reason Onset Date Comments Nurse Triage 01/11/2025 Encounter Details Date Type Department Care Team ([facility] st Contact Info) Description 01/11/2025 Telephone [facility] MEDICINE [address] [place], [place] [phone] Name, MD Tommie [address] [place] [address] Nurse Triage Social History Tobacco Use Types Packs/Day Years [...] t he electric, gas, oil or water [employer] threatened to shut off services in your [...] encounter Miscellaneous Notes * Telephone Encounter - Chary Jaeger RN - 01/11/2025 2:01 PM EDT Called pt. She states that she has been having discomfort when she urinates x 5 days. Today pt. [place] in lower back and when she urinated her urine is pink. Pt. Does have a Hx. Of kidney stones and was told that she has kidney stones but they are too big to pass. Pt. Now has pain even when she does not urinate. No fever. Pt. Declines need for ED. I advised pt. To come to [facility] walk in now for evaluation and provider may need to order some testing for her to get done at hospital as needed. Protocol Used: Urine - Blood In (Adult) Protocol-Based Disposition: See in Office or Video Visit Today- Pt. Is going to [facility] walk in now. Positive Triage Questions: * Side (flank) or back pain present * Pain or burning with passing urine (urination) * All other patients with blood in urine (Exception: Could be normal menstrual bleeding.) * All higher-acuity triage questions were negative Care Advice Discussed: * Drink Extra Fluids * Drink Extra Fluids - Extra Notes and Warnings * Reasons To Call Back * Telephone Encounter - Starr Travis Ed - 01/11/2025 1:54 PM EDT Symptom: Urination Pain Outcome: Schedule an urgent appointment (within 1 hour) or talk to a nurse or provider soon Reason: Blood in urine The caller accepted this outcome. No manufacturing engineering manager needed documented in this encounter Plan of Treatment Upcoming Encounters Date Type Department Care Team (Late st Contact Info) Description 02/02/2025 11:30 AM EDT Office Visit [facility] MEDICINE [address] [place] [address] Name, MD Tommie [address] [place] [phone] documented as of this encounter Visit Diagnoses Not on filedocumented in this encounter Additional Health Concerns Assessment Noted Time PHQ-9 Depression Total Score: 0 04/08/20 1:51 PM EDT documented as of this encounter Care Teams Trackman Relationship Specialty Start Date End Date Name, MD Tommie [address] [place] [address] PCP - General Family Medicine 10/27/15 documented as of this encounter
== END 2025-01-11 15:46 | disposition home or self-care (01) ==
LOC: HO.HHCLNP 15:45
PROVIDERS: Visit Provider Internal Medicine
DX: R39.9 Unspecified symptoms and signs involving the genitourinary system (principal)
CPT/HCPCS: 87086